=== PATIENT | female | born 1945 | race Caucasian/White ===

== ENCOUNTER 2018-02-04 14:25 | Emergency (ER) | payer MEDICARE, SELFPAY ==
[2018-02-04 14:29] VITALS: BP 144/76; PULSE 86; RESP 18; TEMP 36.7; O2SAT 98; BMI 28.1
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
[2018-02-04] MEDS: Acetaminophen 500 MG Tablet 1000 MG PO (15:22)
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
[2018-02-04 16:39] VITALS: BP 148/91; PULSE 69; RESP 16; O2SAT 98
== END 2018-02-04 16:42 | disposition home or self-care (01) ==
PROVIDERS: Emergency Provider Emergency Medicine; Family Provider Internal Medicine; PCP Internal Medicine
DX: S60.211A Contusion of right wrist, initial encounter (principal); S90.01XA Contusion of right ankle, initial encounter; E03.9 Hypothyroidism, unspecified; Z79.899 Other long term (current) drug therapy; V43.52XA Car driver injured in collision with other type car in traffic accident, initial encounter; Y93.I9 Activity, other involving external motion; Y92.410 Unspecified street and highway as the place of occurrence of the external cause; Y99.8 Other external cause status
CPT/HCPCS: 70450; 73110; 73610; 99284